=== PATIENT | male | born 1975 | race Caucasian/White ===

== ENCOUNTER → 2018-11-23 | Day surgery (SDC) | payer OTHER ==
[~2018-11-23] MED LIST: FENTANYL CITRATE/PF 100MCG/2 ML INJ ONE; HYOSCYAMINE SULFATE 0.5 MG/ML INJ ONE; LEXAPRO10 MG PO; LIDOCAINE HCL 2% LOCAL INJ 5 ML SDV VIAL INJ ONE; MELOXICAM7.5 MG PO; MIDAZOLAM HCL 2 MG/2 ML VIAL ONE; PROPOFOL IV EMULSION 10 MG/ML 20 ML VIAL ONE; TIZANIDINE HCL4 MG PO; XANAX0.5 MG PO
--- OUTSIDE RECORDS SUMMARY | 2018-11-23 11:46 | XMS REPORT | Clinical Summary ---
Author Author [facility] Organization [facility] Address Unknown Phone Unavailable Care Team Providers Care Boat Dispatcher Name Role Phone Bruce Boland PCP Allergies No Known Allergies Medications End Date Status Medication Sig Dispensed Refills Start Date Active gabapentin (NEURONTIN) 1 pill every 0 300 mg capsule 8 hours 9 Active ALPRAZolam (XANAX) 0.5 MG 0 tablet 9 Active lisinopril 0 (PRINIVIL,ZESTRIL) 10 mg 9 tablet 12/18/2018 Active methylPREDNISolone follow 21 tablet 0 (MEDROL, KUSUM,) 4 mg package 9 tablet directions Active tiZANidine (ZANAFLEX) 4 Take 1 30 tablet 4 MG tablet tablets PO at 9 night 10/18/2018 Discontinued cyclobenzaprine 0 (FLEXERIL) 10 mg tablet 9 Active Problems Problem Noted Date Cervicogenic headache 10/18/2018 Cervicalgia 10/18/2018 Carpal tunnel syndrome, bilateral 10/18/2018 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 Left lumbar radiculopathy 10/18/2018 Snoring 10/18/2018 Encounters Care Team Description Date Type Specialty Kanika Cuba MD Cervicogenic headache 10/27/2018 Hospital Radiology Encounter Kanika Cuba MD Cervicogenic headache (Primary Dx); Cervicalgia; Snoring; Carpal tunnel syndrome, bilateral; Ulnar neuropathy at elbow, unspecified laterality; Left lumbar radiculopathy 10/18/2018 Office Visit Neurology after 11/22/2017 Family History Medical History Relation Name Comments No Known Problems Father No Known Problems Mother Relation Name Status Comments Father Alive Mother Alive Social History Date Tobacco Use Types Packs/Day Years Used Current Every Day Smoker Smokeless Tobacco: Chew Current User Comments: 1 can about 1 1/2 day Alcohol Use Drinks/Week oz/Week Comments No Alcohol Habits Answer Date Recorded How often do you have a drink containing alcohol? Never 10/18/2018 How many drinks containing alcohol do you have on Not asked a typical day when you are drinking? How often do you have six or more drinks on one Not asked occasion? Sex Assigned at Date Recorded Not on file Industry Job Start Date Occupation Not on file Not on file Not on file Travel End Travel History Travel Start No recent travel history available. Last Filed Vital Signs Time Taken Vital Sign Reading 10/18/2018 9:50 AM CDT Blood Pressure 123/78 10/18/2018 9:50 AM CDT Pulse 82 - Temperature - - Respiratory Rate - - Oxygen Saturation - - Inhaled Oxygen - Concentration 10/27/2018 7:00 AM CDT Weight 104 kg (230 lb) 10/18/2018 9:50 AM CDT Height 185.4 cm (6' 1") 10/18/2018 9:50 AM CDT Body Mass Index 30.34 Plan of Treatment Care Team Description Date Type Specialty Kanika Cuba MD [facility] [address] [place] [address] [phone] 02/27/2019 Office Visit Neurology Health Maintenance Due Date Last Done Comments INFLUENZA VACCINE 01/25/2019 Procedures Comments Procedure Name Priority Date/Time Associated Diagnosis MRI BRAIN W WO CONTRAST Routine 10/27/2018 Cervicogenic headache 8:07 AM CDT after 11/22/2017 Results * MRI Brain W Wo Contrast (10/27/2018 8:07 AM CDT) Specimen Narrative Performed At Study:MRI BRAIN W WO CONTRAST [facility] History:R51 Headache, headache. COMPARISON:None. TECHNIQUE: Precontrast Sagittal, coronal, axial T1, T2, FLAIR, gradient, diffusion And postcontrast axial, sagittal, coronal T1 MR images of the brain performed. FINDINGS: Parenchymal volume is normal. No white matter signal abnormality. There is no abnormal enhancement. There is no acute infarct, hemorrhage, midline shift, hydrocephalus, extra-axial collections, or edema. A small pineal cyst is without suspicious solid components and measures 9 mm. The orbits are unremarkable. The visualized paranasal sinuses and mastoid air cells are without significant fluid signal. The calvarium is unremarkable. IMPRESSION: No significant intracranial abnormality. [id number] Procedure Note Hm Interface, Radiology Results Incoming - 10/27/2018 8:28 AM CDT Study:MRI BRAIN W WO CONTRAST History:R51 Headache, headache. COMPARISON:None. TECHNIQUE: Precontrast Sagittal, coronal, axial T1, T2, FLAIR, gradient, diffusion And postcontrast axial, sagittal, coronal T1 MR images of the brain performed. FINDINGS: Parenchymal volume is normal. No white matter signal abnormality. There is no abnormal enhancement. There is no acute infarct, hemorrhage, midline shift, hydrocephalus, extra-axial collections, or edema. A small pineal cyst is without suspicious solid components and measures 9 mm. The orbits are unremarkable. The visualized paranasal sinuses and mastoid air cells are without significant fluid signal. The calvarium is unremarkable. IMPRESSION: No significant intracranial abnormality. [id number] Performing Organization Address City/State/Zipcode Phone Number [facility] [address] [place] [address] after 11/22/2017 Insurance Type Payer Benefit Subscriber ID Effective Phone Address Plan / Dates Group HMO/PPO [facility] xxxxxxxxx [id number] THCARE resent CHOICE/CHO ICE + Advance Directives Patient has advance care planning documents on file. For more information, pleas e contact: Tarik Pollock [address] [place] [address]
[2018-11-23 17:10] VITALS: BP 108/82
--- NOTE | 2018-11-23 17:45 | Operative Report ---
DATE OF PROCEDURE: 11/23/2018 SURGEON: Young Alcazar MD PROCEDURE: Colonoscopy with polypectomy. INDICATIONS FOR COLONOSCOPY: Rectal bleeding. MEDICATIONS: The patient was done under MAC. Please see anesthesiologist's note. PROCEDURE IN DETAIL: With the patient in left lateral decubitus position, a flexible fiberoptic Olympus colonoscope was inserted into the rectum with ease and advanced all the way to the cecum. The scope was then withdrawn slowly. Mucosa overlying the cecum, ascending colon, transverse, descending, and sigmoid appeared to be within normal limits. One polyp was noted in the proximal rectum and that was removed per hot biopsy forceps. The scope was then retroflexed into the distal rectum and small internal hemorrhoids were noted, none of which was actively bleeding. The scope was then straightened out. It was subsequently withdrawn. The patient tolerated procedure well. IMPRESSION: 1. Rectal polyp, hot biopsied. 2. Internal hemorrhoids, none actively bleeding. PLAN: Follow up histology. Initiate high-fiber, low-fat diet. Initiate high-fiber supplement. Anucort-HC suppositories b.i.d. x10 days and p.r.n. The patient might benefit from a followup colonoscopy in 5 years. Young Alcazar MD [facility] [place] /[id number] cc: Chris Boland DO
== END | disposition home or self-care (01) ==
LOC: OR 11:45
PROVIDERS: ATTEND Internal Medicine Gastroenterology
DX: K62.5 Hemorrhage of anus and rectum (principal); K62.1 Rectal polyp; K64.8 Other hemorrhoids; K21.9 Gastro-esophageal reflux disease without esophagitis; M54.9 Dorsalgia, unspecified; R03.0 Elevated blood-pressure reading, without diagnosis of hypertension; F41.9 Anxiety disorder, unspecified; F32.9 Major depressive disorder, single episode, unspecified; Z01.810 Encounter for preprocedural cardiovascular examination; Z68.32 Body mass index [BMI] 32.0-32.9, adult
CPT/HCPCS: 45384; 93005; J1980; J2001; J2250; J2704; 45378

== ENCOUNTER → 2021-10-09 | Day surgery (SDC) | payer OTHER ==
[~2021-10-09] MED LIST changes: -HYOSCYAMINE SULFATE 0.5 MG/ML INJ ONE; +LISINOPRIL10 MG PO; +OMEPRAZOLE40 MG PO; +POVIDONE IODINE 0.05% 0.05 % ML PO ONE
[2021-10-09 08:25] VITALS: BP 118/67
== END | disposition home or self-care (01) ==
LOC: OR 06:04
PROVIDERS: ATTEND Internal Medicine Gastroenterology
DX: K29.50 Unspecified chronic gastritis without bleeding (principal); K31.7 Polyp of stomach and duodenum; K20.90 Esophagitis, unspecified without bleeding; K44.9 Diaphragmatic hernia without obstruction or gangrene; K21.9 Gastro-esophageal reflux disease without esophagitis; K62.5 Hemorrhage of anus and rectum; Z71.3 Dietary counseling and surveillance; G47.33 Obstructive sleep apnea (adult) (pediatric); I10 Essential (primary) hypertension; Z01.810 Encounter for preprocedural cardiovascular examination; Z01.812 Encounter for preprocedural laboratory examination; Z20.822 Contact with and (suspected) exposure to COVID-19; Z79.899 Other long term (current) drug therapy; Z68.32 Body mass index [BMI] 32.0-32.9, adult
CPT/HCPCS: 43239; 93005; C9113; J2001; J2250; J2704; J3010; U0002

== ENCOUNTER → 2024-05-18 | Day surgery (SDC) | payer OTHER ==
[~2024-05-18] MED LIST changes: -FENTANYL CITRATE/PF 100MCG/2 ML INJ ONE; +METOCLOPRAMIDE HCL 10 MG/2ML VIAL ONE; +ONDANSETRON HCL INJ 2MG/ML 2ML 2 MG/ML VIAL ONE; -POVIDONE IODINE 0.05% 0.05 % ML PO ONE; +PROPOFOL IV EMULSION 50 ML IV ONE
[2024-05-18] MEDS: LACTATED RINGER'S 1,000 ML ONE (07:03)
[2024-05-18] MEDS: ONDANSETRON HCL INJ 2MG/ML 2ML 2 MG/ML VIAL ONE (07:25)
[2024-05-18 09:58] VITALS: TEMP 97.6
[2024-05-18 10:25] VITALS: BP 140/97; PULSE 78; RESP 16; O2SAT 97
== END | disposition home or self-care (01) ==
LOC: OR 06:33
PROVIDERS: ATTEND Internal Medicine Gastroenterology
DX: K29.70 Gastritis, unspecified, without bleeding (principal); K31.7 Polyp of stomach and duodenum; K20.90 Esophagitis, unspecified without bleeding; K21.9 Gastro-esophageal reflux disease without esophagitis; K44.9 Diaphragmatic hernia without obstruction or gangrene; K57.30 Diverticulosis of large intestine without perforation or abscess without bleeding; K58.9 Irritable bowel syndrome, unspecified; K64.8 Other hemorrhoids; G47.33 Obstructive sleep apnea (adult) (pediatric); I10 Essential (primary) hypertension; R51.9 Headache, unspecified; N39.0 Urinary tract infection, site not specified; F17.220 Nicotine dependence, chewing tobacco, uncomplicated; Z01.810 Encounter for preprocedural cardiovascular examination; Z79.1 Long term (current) use of non-steroidal anti-inflammatories (NSAID); Z79.899 Other long term (current) drug therapy
CPT/HCPCS: 43239; 43251; 45378; 93005; J2003; J2250; J2405; J2470; J2704 ×2; J2765; J7121